=== PATIENT | male | born 1975 | race Native Hawaiian/Other Pacific Islander ===

== ENCOUNTER 2019-04-19 00:23 | Emergency (ER) | payer OTHER ==
[~2019-04-19] VITALS: Ht 172.7 cm; Wt 76.2 kg
[2019-04-19 00:36] VITALS: TEMP 100.8
[2019-04-19 01:41] VITALS: BP 129/77
== END 2019-04-19 01:41 | disposition home or self-care (01) ==
LOC: ED 00:23
DX: M54.5 Low back pain (principal); Z87.828 Personal history of other (healed) physical injury and trauma
CPT/HCPCS: 96372; 99283; J1885

== ENCOUNTER 2020-03-16 07:23 | Emergency (ER) | payer OTHER ==
[~2020-03-16] VITALS: Ht 172.7 cm; Wt 84.4 kg
[2020-03-16 07:40] VITALS: TEMP 97.9
[2020-03-16 09:03] VITALS: BP 128/89
== END 2020-03-16 09:04 | disposition home or self-care (01) ==
LOC: ED 07:23
DX: J06.9 Acute upper respiratory infection, unspecified (principal); M54.89 Other dorsalgia; Z03.818 Encounter for observation for suspected exposure to other biological agents ruled out
CPT/HCPCS: 87635; 87651; 99283; U0003

== ENCOUNTER 2020-04-25 21:19 | Emergency (ER) | payer OTHER | END 2020-04-25 22:07 | disposition home or self-care (01) | LOC: ED 21:19 | DX: Z04.1 Encounter for examination and observation following transport accident (principal) | CPT/HCPCS: 99281 ==

== ENCOUNTER 2022-02-18 22:29 | Emergency (ER) | payer OTHER ==
[~2022-02-18] VITALS: Ht 172.7 cm; Wt 84.4 kg
[2022-02-18 23:08] LABS: PLATELET COUNT 212 K/uL (142-355)
[2022-02-18 23:18] LABS: POTASSIUM 3.8 mmol/L (3.6-5.2)
[2022-02-18 23:29] LABS: PARTIAL THROMBOPLASTIN TIME 22.3 SECONDS (24.5-33.6)
[2022-02-19 02:10] VITALS: TEMP 98.1
[2022-02-19 03:30] VITALS: BP 136/78
== END 2022-02-19 03:25 | disposition short-term general hospital (02) ==
LOC: ED 22:29
PROVIDERS: Family Medicine
DX: J18.1 Lobar pneumonia, unspecified organism (principal); R00.2 Palpitations; R00.0 Tachycardia, unspecified
CPT/HCPCS: 36415; 80053; 80307; 80320; 81002; 82550; 84443; 84484; 85027; 85610; 85730; 87502; 87635; 93005; 99285; J0456; J0696; J1650; U0003